=== PATIENT | female | born 1950 | race Caucasian/White ===

== ENCOUNTER 2020-03-22 08:44 | Day surgery (SDC) | payer MEDICARE, BC ==
--- NOTE | 2020-03-21 11:39 | PCM.PREANE ---
<Juanis Galvin - Last Filed: 03/21/20 11:33> Preanesthetic Assessment - Procedure Proposed Procedure: Left Knee Video Arthroscopy with Partial Medial Menisectomy and chondroplasty - Anesthesia/Transfusion/Family Hx Anesthesia History: Prior Anesthesia Without Reaction Family History of Anesthesia Reaction: No Transfusion History: No Prior Transfusion(s) Intubation History: Unknown - Review of Systems General: Fatigue Cardiovascular: No Symptoms (Increased cholesterol) Gastrointestinal: No Symptoms (IBS) Neurological: No Symptoms (Vertigo, History of lower back pain) Other: Reports: Depression, Anxiety - Physical Assessment NPO Status Date: 03/21/20 Vital Signs: HR: Sat: Temp: B/P: Resp: Height: 1.55 m ASA Class: 2 Mental Status: Alert & Oriented x3 - Lab Values: All labs reviewed and noted and within acceptable ranges to proceed with scheduled procedure. - Imaging/EKG Impressions: EKG: NSR with sinus arrhythmia rate=76 - Anesthesia Plan Pre-Op Medication Ordered: None - Acknowledgements Anesthesia Type Planned: General Anesthesia Pt an Appropriate Candidate for the Planned Anesthesia: Yes Alternatives and Risks of Anesthesia Discussed w Pt/Guardian: Yes Pt/Guardian Understands and Agrees with Anesthesia Plan: Yes <StevenancyRoberta - Last Filed: 03/22/20 10:10> Preanesthetic Assessment - Anesthesia/Transfusion/Family Hx Anesthesia History: Prior Anesthesia Without Reaction Family History of Anesthesia Reaction: No Transfusion History: No Prior Transfusion(s) Intubation History: Unknown - Review of Systems General: No Symptoms Cardiovascular: No Symptoms (Increased cholesterol, EKG NSR with SA 76 ) Gastrointestinal: No Symptoms Neurological: No Symptoms, Headache Other: Reports: Depression, Anxiety - Physical Assessment NPO Status Time: 22:00 ASA Class: 2 Mental Status: Alert & Oriented x3 Airway Class: Mallampati = 2 Dentition: Reports: Normal Dentition Thyro-Mental Finger Breadths: 3 Mouth Opening Finger Breadths: 3 ROM/Head Extension: Full Lungs: Clear to Auscultation, Normal Respiratory Effort Cardiovascular: Regular Rate, Regular Rhythm - Anesthesia Plan Pre-Op Medication Ordered: None - Acknowledgements Anesthesia Type Planned: General Anesthesia Pt an Appropriate Candidate for the Planned Anesthesia: Yes Alternatives and Risks of Anesthesia Discussed w Pt/Guardian: Yes Pt/Guardian Understands and Agrees with Anesthesia Plan: Yes PreAnesthesia Questionnaire HEENT History: Reports: None Cardiovascular History: Reports: None, High Cholesterol, Other (See Below) (3 cardiac events, all workups come back negative, 98-01-01) Respiratory History: Reports: None Gastrointestinal History: Reports: None Genitourinary History: Reports: None Musculoskeletal History: Reports: None Neurological History: Reports: None Psychiatric History: Reports: Anxiety, Depression Endocrine/Metabolic History: Reports: None - Past Surgical History HEENT Surgical History: Reports: Tonsillectomy Female Surgical History: Reports: Hysterectomy, Other (See Below) (bladder mesh) - SUBSTANCE USE Tobacco Use Status *Q: Never Tobacco User - CURRENT (IN HOUSE) MEDS Current Meds: Current Medications Lactated Ringer's (Ringers, Lactated) 1,000 mls @ 125 mls/hr IV ASDIRECTED EUGENIO Stop: 03/22/20 23:00 Last Admin: 03/22/20 09:00 Dose: 125 mls/hr Documented by: Lidocaine/Sodium Bicarbonate (Buffered Lidocaine 1% In Ns 8.4%) 0.25 ml IDERM ONETIME PRN PRN Reason: Prior to IV Start Stop: 03/22/20 18:00 Scopolamine (Transderm-Scop) 1.5 mg TRDERM ONETIME PRN PRN Reason: history of vertigo Stop: 03/22/20 18:00 Sodium Chloride (Saline Flush) 10 ml FLUSH ASDIRECTED PRN PRN Reason: Keep Vein Open Stop: 03/22/20 18:00
[~2020-03-22 08:44] MED LIST: Lactated Ringers 1,000 ML IV SCH; Lidocaine 1%/Sod Bicarbonate in NS 8.4% 1 ML Syringe IDERM PRN; Scopolamine 1.5 MG Transdermal Patch TRDERM PRN; Sodium Chloride 0.9% 10 ML Syringe FLUSH PRN
[2020-03-22] MEDS ORDERED: Lactated Ringers 0 ML ONE (10:05)
[2020-03-22] MEDS ORDERED: Propofol 200 MG/20 ML SDV ONE ×2 (10:05→10:21)
[2020-03-22] MEDS ORDERED: Dexamethasone 4 MG/ML 5 ML MDV ONE (10:05)
[2020-03-22] MEDS ORDERED: HYDROmorphone 0.5 MG/0.5 ML Syringe ONE (10:05)
[2020-03-22] MEDS ORDERED: Ondansetron 4 MG/2 ML SDV ONE ×2 (10:05→11:03)
[2020-03-22] MEDS ORDERED: fentaNYL 250 MCG/5 ML SDV ONE (10:06)
[2020-03-22] MEDS ORDERED: Midazolam 1 MG/ML 2 ML SDV ONE (10:21)
[2020-03-22] MEDS ORDERED: Lidocaine 1% 0 ML ONE (10:21)
[2020-03-22] MEDS ORDERED: fentaNYL 100 MCG/2 ML SDV ONE ×2 (10:22→11:03)
[2020-03-22] MEDS ORDERED: fentaNYL 100 MCG/2 ML SDV IVPUSH PRN (10:58)
[2020-03-22] MEDS ORDERED: Ondansetron 4 MG/2 ML SDV IVPUSH PRN (10:58)
[2020-03-22] MEDS ORDERED: Ketorolac 30 MG/ML SDV ONE (11:03)
--- NOTE | 2020-03-22 11:40 | PCM.POSTAN ---
POST ANESTHESIA ASSESSMENT - MENTAL STATUS Mental Status: Alert, Oriented - VITAL SIGNS Vital Signs: Last Vital Signs Temp 36.3 C 03/22/20 08:45 Pulse 92 03/22/20 08:45 Resp 16 03/22/20 08:45 BP 129/71 03/22/20 08:45 Pulse Ox 99 03/22/20 08:45 - RESPIRATORY Respiratory Status: Respiratory Rate WNL, Airway Patent, O2 Saturation Stable - CARDIOVASCULAR CV Status: Pulse Rate WNL, Blood Pressure Stable - GASTROINTESTINAL GI Status: No Symptoms - PAIN Pain Score: 0 - POST OP HYDRATION Hydration Status: Adequate & Stable
[2020-03-22] MEDS ORDERED: Acetaminophen/HYDROcodone 325-5 MG Tab PO PRN (12:40)
[2020-03-22] MEDS ORDERED: Acetaminophen 325 MG Tab PO ONE (12:41)
--- NOTE | 2020-04-02 07:44 | PCM.OPNOTE ---
- General Post-Op/Procedure Note Date of Surgery/Procedure: 03/22/20 Operative Procedure(s): left knee video arthroscopy with partial medial meniscecomty and chondroplasty medial femoral condyle Pre Op Diagnosis: left knee medial meniscus tear with chondromalacia Post-Op Diagnosis: Same Anesthesia Technique: General LMA, Local Primary Surgeon: Vincent Nicholas Anesthesia Provider: Sophia Kang Personal Secretary: Elda Hidalgo EBL in mLs: 5 Complications: None Condition: Good
--- NOTE | 2020-04-06 13:02 | OR ---
DATE OF OPERATION: 03/22/2020 SURGEON: Vincent Nicholas MD OPERATION PERFORMED: Left knee video arthroscopy with partial medial meniscectomy and chondroplasty of medial femoral condyle. PREOPERATIVE DIAGNOSIS: Left knee medial meniscus tear with chondromalacia. POSTOPERATIVE DIAGNOSIS: Left knee medial meniscus tear with chondromalacia. ANESTHESIA: General LMA with local. ANESTHESIA PROVIDER: Sophia Kang CRNA. [employer]ECKTIE OPERATOR POCKETS AND PIECES: Elda Hidalgo PA-C. ESTIMATED BLOOD LOSS: Less than 5 mL. COMPLICATIONS: None. CONDITION: Stable. DESCRIPTION OF PROCEDURE: The patient was identified in the preoperative holding area where proper site was marked and identified by the surgeon. The patient was taken back to the operative theater where after adequate anesthesia the patient's right lower extremity was placed in a well leg bedolla. Left lower extremity had a nonsterile tourniquet applied. It was then placed in a C-clamp bedolla. Foot of the bed was then lowered. Left lower extremity was then sterilely prepped and draped in usual sterile fashion. OR time-out was performed. The patient received 2 g IV Ancef. At this time, the left lower extremity was exsanguinated. Tourniquet was insufflated to 250 mmHg. Standard anterior lateral portal incision was made. Scope trocar was introduced to the knee joint. The patient was noted to have grade 3 chondromalacia of the patellofemoral joint with no loose cartilage flaps noted. She was noted to have some significant synovitis. Attention was turned to the medial compartment. With the use of spinal needle, anterior medial portal was created. The scope trocar was introduced. The patient was noted to have grade 3 and some grade 4 chondromalacia changes of the medial femoral condyle with loose flaps. At this time, a chondroplasty was performed of any loose cartilaginous flaps of the medial femoral condyle. She was noted to have grade 2/3 chondromalacia of the tibial plateau as well. The patient had small posterior tear of the posterior horn of the medial meniscus. At this time, this was resected and a partial medial meniscectomy of roughly 25% of the posterior horn was resected at this time back to a stable rim. ACL was intact in the notch. Lateral compartment showed grade 1/2 chondromalacia changes, but no cartilage flaps. At this time, excess saline was drained from the knee. 3-0 nylon suture was used for closure of the skin. The patient had a sterile soft dressing applied and sent to the PACU in stable condition. MARIO /[id number]
== END 2020-03-22 13:34 | disposition home or self-care (01) ==
LOC: JD.SDS 08:44
PROVIDERS: ATTEND Orthopaedic Surgery
DX: S83.242A Other tear of medial meniscus, current injury, left knee, initial encounter (principal); M94.262 Chondromalacia, left knee; F32.9 Major depressive disorder, single episode, unspecified; E78.5 Hyperlipidemia, unspecified; R21 Rash and other nonspecific skin eruption; F41.9 Anxiety disorder, unspecified; E78.00 Pure hypercholesterolemia, unspecified; Z88.5 Allergy status to narcotic agent; Z88.8 Allergy status to other drugs, medicaments and biological substances; Z88.1 Allergy status to other antibiotic agents; Z79.899 Other long term (current) drug therapy; Z98.890 Other specified postprocedural states
CPT/HCPCS: 29881; A9270; J1885; J2250; J2405; J2704; J3010; J7120; 01400; J1100; J1170; J2001